=== PATIENT | male | born 1980 | race Caucasian/White ===

== ENCOUNTER 2023-11-10 19:24 | Emergency (ER) | payer OTHER ==
[2023-11-10 19:47] VITALS: BP 124/85; PULSE 80; RESP 16; TEMP 99; BMI 25.0
[2023-11-10] MEDS ORDERED: IBUPROFEN 600 MG TABLET (FP) PO ONE (20:45)
[2023-11-10] MEDS: IBUPROFEN 600 MG TABLET (FP) PO ONE (20:45)
[2023-11-10 22:22] LABS: HIV INTERPRETATION NEGATIVE (NEGATIVE)
[2023-11-10] MEDS ORDERED: ACETAMINOPHEN 500 MG TABLET (FP) ONE (22:26)
[2023-11-10] MEDS: ACETAMINOPHEN 500 MG TABLET (FP) PO ONE (22:31)
== END 2023-11-10 23:10 | disposition home or self-care (01) ==
LOC: JERFT 19:24 → JER 19:24
DX: L02.92 Furuncle, unspecified (principal)
CPT/HCPCS: 36415; 86803; 87389; 99285-25